=== PATIENT | male | born 1940 | race Caucasian/White ===

== ENCOUNTER 2016-04-20 09:31 | Observation (INO) ==
--- NOTE | 2016-04-20 09:45 | Emergency Department Note ---
Disposition Clinical Impression: Chest pain Qualifiers: Chest pain type: unspecified Qualified Code(s): R07.9 - Chest pain, unspecified Disposition: Admitted As Inpatient Time of Disposition: 17:17 Chest Pain HPI - General Chief Complaint: ED Chest Pain Stated Complaint: abnormal EKG Time Seen by Provider: 04/20/16 09:33 Source: patient Limitations: no limitations - History of Present Illness HPI Narrative: 75-year-old male presents to the ER from urgent care complaining several days of dyspnea and chest pressure. He states that yesterday he was seen by his PCP and was given a prescription for a blood pressure medication due to high blood pressure. He states that his blood pressures have been up to 180s. He states that at the urgent care they did an EKG which they stated was abnormal and that he needed to be seen in the emergency department. 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 He states that the chest pain is a diffuse pressure and does not radiate anywhere. He states that it is different than his pain he experienced with prior MIs. He states that the chest pain was associated with nausea today. He also states that he gets dizzy when his blood pressure is high. He denies pain, headache, dysuria, fevers, chills. Severity scale (1-10): 0 - Related Data Home Medications Medication Instructions Recorded Confirmed Clopidogrel [Plavix] 75 mg PO DAILY 04/20/16 04/20/16 FentaNYL PATCH [Duragesic] 25 mcg TD Q72H 04/20/16 04/20/16 Levothyroxine [Synthroid] 112 mcg PO DAILY 04/20/16 04/20/16 Lisinopril [Zestril] 5 mg PO DAILY 04/20/16 04/20/16 Mv-Mn/FA/Vit K/Lycop/Lut/Coq10 1 each PO DAILY 04/20/16 04/20/16 [Daily Multivitamin Capsule] Allergies Allergy/AdvReac Type Severity Reaction Status Date / Time gabapentin [From Neurontin] AdvReac Vomiting Verified 04/20/16 14:43 All systems ED: reviewed and negative except as stated. Chest Pain PMH - Past Medical History Medical history: Reports: cancer, hypertension, myocardial infarction Psychiatric history: Reports: no psych history - Social History Smoking Status: Never smoker Alcohol use: Reports: none Drug use: Reports: none Physical Exam - General Limitations: no limitations General appearance: alert, in no apparent distress - Head Head exam: atraumatic, normocephalic - Eye Eye exam: Present: PERRL, EOMI - ENT ENT exam: normal oropharynx, mucous membranes moist, other (post surgical changes to the left jaw) - Neck Neck exam: Present: trachea midline, other (scarring the the left neck and jaw.) . Absent: lymphadenopathy - Chest Chest inspection: Present: other (multiple surgical scars on the left anterior chest) - Respiratory Respiratory exam: Present: normal lung sounds bilaterally. Absent: respiratory distress, wheezes, stridor, accessory muscle use - Cardiovascular Cardiovascular exam: Present: regular rate, normal rhythm, +S1, +S2 - Abdominal Exam Abdominal exam: Present: soft, normal bowel sounds. Absent: tenderness, distention, guarding, rebound, rigidity Abdominal tenderness: Present: suprapubic - Extremities Exam Extremities exam: Present: normal inspection, full ROM, normal capillary refill. Absent: tenderness, pedal edema, calf tenderness - Back Exam Back exam: Present: normal inspection - Neurological Exam Neurological exam: Present: alert, oriented X3 - Psychiatric Psychiatric exam: Present: normal affect, normal mood Course Course Narrative: 75-year-old male presents with dyspnea and chest pressure for a few days. Was seen in urgent care and was sent here for further evaluation due to abnormal EKG. EKG shows sinus rhythm with heart rate of 63, FL interval 165, QT of 402. No significant changes when compared to prior. Patient does have history of prior [place] in neck cancer. Will do cardiac workup. Patient states that he is currently not in any pain. His blood pressure upon arrival to the room is 192/ 101. Patient's exam is unremarkable except for mild suprapubic tenderness. CXR shows no acute process, trop negative. CBC, CMP WNL. D-Dimer 2022, will obtain CTA with patient symptom of dyspnea and history of 2 different cancers. CTA negative for PE Upon review of records, patient had 2 stents in 2011 with his last stress test at that time. Patient had ECHO in 2012. Denies recent cardiac workup. Blood pressure has improved since arrival, is in the 140's. Discussed admission with Dr. Ellsworth who has accepted the patient. Discussed admission with patient and his . - Consultations Consultation #1: Discussed case with Dr. Ducu with the Hospitalist service, who has accepted the patient for admission. Time: 13:31 Vital Signs Temperature 97.6 F 04/20/16 09:34 Pulse Rate 63 04/20/16 09:34 Respiratory Rate 16 04/20/16 09:34 Blood Pressure 192/101 04/20/16 09:34 O2 Sat by Pulse Oximetry 98 04/20/16 09:34 Temperature 97.6 F 04/20/16 14:15 Pulse Rate 58 04/20/16 14:15 Respiratory Rate 15 04/20/16 14:15 Blood Pressure 163/84 04/20/16 14:15 O2 Sat by Pulse Oximetry 95 04/20/16 14:15 Oxygen Delivery Oxygen Delivery Room Air Chest Pain - Medical Records Medical records reviewed: Yes I reviewed the patient's medical records. - Lab Data Lab results reviewed: Yes I reviewed the patient's lab results. Result diagrams: 04/20/16 09:51 04/20/16 09:51 Lab Results 04/20/16 04/20/16 04/20/16 Range/Units 09:51 09:51 09:51 WBC 4.4 (4.3-11.1) K/mcL RBC 4.32 (4.19-5.50) M/mcL Hgb 14.2 (12.9-16.9) g/dL Hct 40.8 (37.5-50.1) % MCV 94.4 (83.0-100.0) fL MCH 32.9 (28.0-33.3) pg MCHC 34.8 (31.6-35.5) g/dL RDW 12.3 (11.5-14.5) % Plt Count 130 L (140-400) K/mcL MPV 9.9 (9.4-12.4) fL Immature Gran % 0.2 (0-4) % Seg Neutrophils % 62.0 % Lymphocytes % 26.7 % Monocytes % 7.9 % Eosinophils % 2.5 % Basophils % 0.7 % Neutrophils # 2.7 (1.6-8.9) K/mcL Lymphocytes # 1.2 (0.6-4.6) K/mcL Monocytes # 0.4 (0.0-1.3) K/mcL Eosinophils # 0.1 (0.0-0.6) K/mcL Basophils # 0.0 (0.0-0.2) K/mcL Immature Plt Fraction 2.7 (1.1-6.1) % PT 11.7 (9.4-12.1) Seconds INR 1.1 APTT 29.7 (26.0-36.0) Seconds D-Dimer 2023 H (0-500) ng/mLFEU Sodium 141 (136-145) mEq/L Potassium 4.1 (3.5-4.5) mEq/L Chloride 106 (98-109) mEq/L Carbon Dioxide 25 (19-29) mEq/L BUN 17 (8-26) mg/dL Creatinine 1.02 (0.72-1.25) mg/dL Est GFR ( Amer) > 60 (> 60) Est GFR (Non-Af Amer) > 60 (> 60) BUN/Creatinine Ratio 17 (6-26) Glucose 107 H (70-99) mg/dL Calculated Osmolality 294 (280-300) Calcium 9.4 (8.6-10.8) mg/dL Total Bilirubin 1.0 (0.2-1.2) mg/dL Direct Bilirubin 0.4 (0.0-0.5) mg/dL Indirect Bilirubin 0.6 (0.0-1.2) mg/dL AST 20 (5-34) Units/L ALT 11 (0-55) Units/L Alkaline Phosphatase 43 (38-126) Units/L Troponin I (0-0.03) ng/mL Serum Total Protein 6.4 (6.0-8.3) g/dL Albumin 3.7 (3.5-5.0) g/dL Globulin 2.7 (2.4-3.5) g/dL Albumin/Globulin Ratio 1.4 (1.1-2.2) Amylase 53 (25-125) Units/L Lipase 6 L (8-78) Units/L 04/20/16 04/20/16 Range/Units 09:51 16:37 WBC (4.3-11.1) K/mcL RBC (4.19-5.50) M/mcL Hgb (12.9-16.9) g/dL Hct (37.5-50.1) % MCV (83.0-100.0) fL MCH (28.0-33.3) pg MCHC (31.6-35.5) g/dL RDW (11.5-14.5) % Plt Count (140-400) K/mcL MPV (9.4-12.4) fL Immature Gran % (0-4) % Seg Neutrophils % % Lymphocytes % % Monocytes % % Eosinophils % % Basophils % % Neutrophils # (1.6-8.9) K/mcL Lymphocytes # (0.6-4.6) K/mcL Monocytes # (0.0-1.3) K/mcL Eosinophils # (0.0-0.6) K/mcL Basophils # (0.0-0.2) K/mcL Immature Plt Fraction (1.1-6.1) % PT (9.4-12.1) Seconds INR APTT (26.0-36.0) Seconds D-Dimer (0-500) ng/mLFEU Sodium (136-145) mEq/L Potassium (3.5-4.5) mEq/L Chloride (98-109) mEq/L Carbon Dioxide (19-29) mEq/L BUN (8-26) mg/dL Creatinine (0.72-1.25) mg/dL Est GFR ( Amer) (> 60) Est GFR (Non-Af Amer) (> 60) BUN/Creatinine Ratio (6-26) Glucose (70-99) mg/dL Calculated Osmolality (280-300) Calcium (8.6-10.8) mg/dL Total Bilirubin (0.2-1.2) mg/dL Direct Bilirubin (0.0-0.5) mg/dL Indirect Bilirubin (0.0-1.2) mg/dL AST (5-34) Units/L ALT (0-55) Units/L Alkaline Phosphatase (38-126) Units/L Troponin I 0.01 0.00 (0-0.03) ng/mL Serum Total Protein (6.0-8.3) g/dL Albumin (3.5-5.0) g/dL Globulin (2.4-3.5) g/dL Albumin/Globulin Ratio (1.1-2.2) Amylase (25-125) Units/L Lipase (8-78) Units/L - Radiology Data Radiology results reviewed: Yes I reviewed the patient's radiology results. Chest x-ray: No acute cardiopulmonary disease, ectasia of the ascending thoracic aorta CT/CT angio chest IMPRESSION: No evidence of pulmonary embolism or acute pulmonary abnormality. D/ / Matt Esparza MD / Matt Esparza MD Interpreting Provider: Matt Esparza MD - EKG Data EKG attestation: Yes I reviewed and interpreted this EKG. EKG shows normal: sinus rhythm Rate: normal Rhythm: NSR [place]/QRS: normal Voltage: c/w LVH When compared to previous EKG there are: no significant changes
[2016-04-20 10:03] LABS: Basophils % 0.7 %; Eosinophils # 0.1 K/mcL (0.0-0.6); Eosinophils % 2.5 %; Hematocrit 40.8 % (37.5-50.1); Hemoglobin 14.2 g/dL (12.9-16.9); Immature Granulocytes % 0.2 % (0-4); Immature Platelets 2.7 % (1.1-6.1); Lymphocytes # 1.2 K/mcL (0.6-4.6); Lymphocytes % 26.7 %; Mean Corpuscular HGB Conc 34.8 g/dL (31.6-35.5); Mean Corpuscular Hemoglobin 32.9 pg (28.0-33.3); Mean Corpuscular Volume 94.4 fL (83.0-100.0); Mean Platelet Volume 9.9 fL (9.4-12.4); Monocytes # 0.4 K/mcL (0.0-1.3); Monocytes % 7.9 %; Neutrophils # 2.7 K/mcL (1.6-8.9); Platelet Count 130 K/mcL (140-400); Red Blood Count 4.32 M/mcL (4.19-5.50); Red Cell Distribution Width 12.3 % (11.5-14.5)
[2016-04-20 10:12] LABS: INR 1.1; Prothrombin Time 11.7 Seconds (9.4-12.1)
[2016-04-20 10:15] LABS: Activated Partial Thrombo Time 29.7 Seconds (26.0-36.0)
[2016-04-20 10:17] LABS: Alanine Aminotransferase 11 Units/L (0-55); Albumin 3.7 g/dL (3.5-5.0); Albumin/Globulin Ratio 1.4 (1.1-2.2); Alkaline Phosphatase 43 Units/L (38-126); Amylase 53 Units/L (25-125); Aspartate Amino Transferase 20 Units/L (5-34); BUN/Creatinine Ratio 17 (6-26); Bilirubin,Direct 0.4 mg/dL (0.0-0.5); Bilirubin,Indirect 0.6 mg/dL (0.0-1.2); Blood Urea Nitrogen 17 mg/dL (8-26); Calcium 9.4 mg/dL (8.6-10.8); Carbon Dioxide 25 mEq/L (19-29); Chloride 106 mEq/L (98-109); Globulin 2.7 g/dL (2.4-3.5); Glucose 107 mg/dL (70-99); Lipase 6 Units/L (8-78); Osmolality,Calculated 294 (280-300); Potassium 4.1 mEq/L (3.5-4.5); Sodium 141 mEq/L (136-145); Total Protein 6.4 g/dL (6.0-8.3); eGFR For African Americans > 60 (> 60); eGFR For Non-African Americans > 60 (> 60)
[2016-04-20] MEDS ORDERED: *HR* HYDROcodone/Acet 5/325 mg TABLET PO PRN (15:10)
[2016-04-20] MEDS ORDERED: Acetaminophen 325 MG TABLET PO PRN (15:10)
[2016-04-20] MEDS ORDERED: Ondansetron 4 MG/2 ML VIAL IVP PRN (15:10)
[2016-04-20] MEDS ORDERED: Naloxone 0.4 MG/ML INJ IVP PRN (15:10)
[2016-04-20] MEDS ORDERED: MOM Conc 10 ML UD.LIQ PO PRN (15:10)
--- NOTE | 2016-04-20 15:29 | Internal Med History&Physical ---
<Federico Ellsworth - Last Filed: 04/20/16 18:34> Date of Encounter: 04/20/16 Internal Medicine - H&P: HPI History of present illness: Mr. Swift is a 75 year old male Internal Medicine - H&P: Meds Clopidogrel [Plavix] 75 mg PO DAILY 04/20/16 [History] FentaNYL PATCH [Duragesic] 25 mcg TD Q72H 04/20/16 [History] Levothyroxine [Synthroid] 112 mcg PO DAILY 04/20/16 [History] Lisinopril [Zestril] 5 mg PO DAILY 04/20/16 [History] Mv-Mn/FA/Vit K/Lycop/Lut/Coq10 [Daily Multivitamin Capsule] 1 each PO DAILY [History] Allergies gabapentin [From Neurontin] Adverse Reaction (Verified 04/20/16 14:43) Vomiting All Systems PM: A 10-system review of systems was performed and is negative for pertinent findings except as documented above in the HPI. - Constitutional Vitals: Temp Pulse Resp BP Pulse Ox 97.6 F 58 15 163/84 95 04/20/16 14:15 04/20/16 14:15 04/20/16 14:15 04/20/16 14:15 04/20/16 14:15 Internal Med - H&P Results - Labs CBC & Chem 7: 04/20/16 09:51 04/20/16 09:51 Labs: Cardiac Enzymes 04/20/16 Range/Units 16:37 Troponin I 0.00 (0-0.03) ng/mL - Attending Attestation I examined this patient and my medical decision-making was reviewed with the Advanced Practice Provider. I agree with the documented findings, disposition and treatment plan as described except to the extent set forth below. Patient reported precordial chest pain, advanced, now resolved, not associated with shortness of breath or diaphoresis. I reviewed his EKG shows normal sinus rhythm normal axis and intervals no ST or T-wave changes. On exam he is in no acute distress heart is bradycardic with premature contractions S1-S2, no murmurs Plan: Telemetry, trend troponin, echocardiogram and stress test in the morning. <Zuleyka Byrne - Last Filed: 04/20/16 18:53> Date of Encounter: 04/20/16 Time of Encounter: 14:45 Assessment and Plan (1) Chest pressure Current visit: Yes Status: Acute Pt has 1-2 month history of SOB and 2-3 week history of substernal chest pain without radiation, n/v, or diaphoresis. Pain does not get worse with deep inspiration or exertion. Pain lasts approx 5-10 min and happens multiple times each day. Describes as a pressure that seems to push up from his abdomen, sometimes it gets so bad that he can feel his heartbeat in his neck and upper chest. Pressure is not reproduceable. EKG NSR, initial troponins, CTA and chest xray all negative. Will continue to monitor. continuous telemetry Echo Stress test ASA 81mg po daily Metoprolol 12.5mg po bid Lipid panel TSH. Serial troponins (2) Shortness of breath Current visit: Yes Status: Acute Pt has 1-2 week history of SOB. Intermittent throughout the day, does not get worse with exertion, inspiration, or get better with rest. Pt relates new infrequent cough with small amount of white sputum. Pt has no history of lung disease and denies recent illness. CTA negative for PE. Same as above Continuous pulse ox Monitor labs Internal Medicine - H&P: HPI Chief complaint: SOB, Chest pressure Admitted From: Home Plans for Post Hospital Care: Home History of present illness: Mr. Swift is a 75 year old male with a 1-2 month history of SOB and sub-sternal chest pressure x 2-3 weeks. Pt states that the pressure happens multiple times throughout the day, and normally lasts 5-10 minutes. He also has intermittent sharp L chest pain lasting seconds. The SOB does not change with the pressure. Describes the pressure as "something pushing up" from his abdomen and sometimes it gets so bad that he can feel his heart beat in his upper chest and neck. Pt reports infrequent cough with clear sputum and denies fever or chills. Past Med Surg Social Fam HX - Past Medical History Medical history: cancer, hypertension, myocardial infarction Psychiatric history: no psych history - Social History Smoking Status: Never smoker Smokeless Tobacco Status: No Alcohol use: none Drug use: none - Family History Mother Living Status: Age at : 57 Cause of : liver ca Hx Family Cancer: Yes (liver) Hx Family Endocrine Disorder: Yes (diabetes) Father Living Status: Age at : 56 Cause of : brain tumor Hx Family Endocrine Disorder: Yes (diabetes) All Systems PM: A 10-system review of systems was performed and is negative for pertinent findings except as documented above in the HPI. - Constitutional Constitutional: no chills, no fever(s), no falls, no weakness - Cardiovascular Cardiovascular ROS IM: chest pain, dyspnea, no edema, no lightheadedness, no palpitations - Respiratory Respiratory: cough, no wheezing, no excessive phlegm production, no pain with cough - Gastrointestinal Gastrointestinal: diarrhea, nausea, vomiting - Endocrine Endocrine IM: no polydipsia, no polyphagia, no polyuria - Hematologic/Lymphatic Hematologic/Lymphatic: no lymphadenopathy - Constitutional Vitals: Temp Pulse Resp BP Pulse Ox 97.6 F 58 15 163/84 95 04/20/16 14:15 04/20/16 14:15 04/20/16 14:15 04/20/16 14:15 04/20/16 14:15 General appearance: Present: A&O X 3, pleasant, no acute distress - Head Additional comments: Previous surgery for esophogeal and neck cancer with removal of L mandible. - Neck Neck exam general surgery: Absent: lymphadenopathy, tenderness - Respiratory Respiratory exam: Present: CTAB. Absent: accessory muscle use, chest wall tenderness, decreased breath sounds, respiratory distress, rhonchi, wheezes - Cardiovascular Cardiovascular exam: Present: RRR, +S1, +S2. Absent: distant heart sounds, systolic murmur - GI/Abdominal GI/Abdominal exam: Present: hyperactive bowel sounds, soft, tenderness. Absent : pulsatile mass Additional comments: Pt reports RLQ tenderness with palpation. No rebound tenderness or guarding. - Extremities Exam Extremities exam: Present: warm, radial pulses palpable and symetrical. Absent : calf tenderness, pedal edema - Expanded Upper Extremities Exam Vascular exam: Present: normal capillary refill, pedal pulse right, pedal pulse left - Neurological Exam Neurological exam: Present: alert, oriented X3 Internal Med - H&P Results - Labs CBC & Chem 7: 04/20/16 09:51 04/20/16 09:51
[2016-04-20] MEDS ORDERED: *HR* FentaNYL PATCH 25 MCG PATCH TD SCH (15:30)
[2016-04-21 04:52] LABS: Basophils % 0.5 %; Eosinophils # 0.1 K/mcL (0.0-0.6); Eosinophils % 3.1 %; Hematocrit 36.7 % (37.5-50.1); Immature Granulocytes % 0.2 % (0-4); Immature Platelets 3.2 % (1.1-6.1); Lymphocytes # 0.9 K/mcL (0.6-4.6); Lymphocytes % 21.6 %; Mean Corpuscular HGB Conc 35.4 g/dL (31.6-35.5); Mean Corpuscular Hemoglobin 33.6 pg (28.0-33.3); Mean Corpuscular Volume 94.8 fL (83.0-100.0); Mean Platelet Volume 9.9 fL (9.4-12.4); Monocytes # 0.4 K/mcL (0.0-1.3); Monocytes % 8.7 %; Neutrophils # 2.8 K/mcL (1.6-8.9); Platelet Count 114 K/mcL (140-400); Red Blood Count 3.87 M/mcL (4.19-5.50); Red Cell Distribution Width 12.4 % (11.5-14.5); Segmented Neutrophils % 65.9 %
[2016-04-21 05:12] LABS: BUN/Creatinine Ratio 17 (6-26); Blood Urea Nitrogen 16 mg/dL (8-26); Calcium 8.8 mg/dL (8.6-10.8); Carbon Dioxide 23 mEq/L (19-29); Chloride 107 mEq/L (98-109); Chol/HDL Ratio 5.5 (0-4.9); Cholesterol 180 mg/dL (< 200); Glucose 91 mg/dL (70-99); HDL Cholesterol 33 mg/dL (40-59); LDL Cholesterol,Calculated 127 mg/dL (0-99); Osmolality,Calculated 289 (280-300); Potassium 3.7 mEq/L (3.5-4.5); Sodium 139 mEq/L (136-145); Triglycerides 99 mg/dL (< 150); eGFR For African Americans > 60 (> 60); eGFR For Non-African Americans > 60 (> 60)
[2016-04-21] MEDS ORDERED: Multivit/Ca/Min/Fe/FA 1 TAB TABLET PO SCH (09:00)
[2016-04-21] MEDS ORDERED: Aspirin 81 MG TAB.CHEW PO SCH (09:00)
--- NOTE | 2016-04-21 10:48 | Nuclear Medicine Stress Report ---
Exercise Nuclear Stress Name: MANDEEP LANDA Date of Study: 04/21/2016 Date: 1940 Ht: 67.0 in Medical Record#: [id number] Age: 75 Wt: 138.0 lb Gender: Male Order #: [id number] Location: [facility] IP Room: [facility] Supervising Provider: Chandan Gtz CNP Reading Physician: Gómez Ayala MD, [facility] Ordering Physician: Mariaelena Goodman CNP Primary Care Physician: Vesna Magallon CNP Stress Technologist: Luigi Branch, [employer] TECHNICIAN, [facility] Damper Fitter: Jim Telles Indications: Chest Pain Impression: The exercise capacity was average. Exercise ECG is borderline for ischemia in the inferior leads. Gated LVEF = 57%. Perfusion imaging was negative for ischemia or infarct. History: Hypertension Prior PCI Stress Test Summary: Stress Test Type: Treadmill Protocol: Héctor Baseline Information: Initial Heart Rate: 58 Blood Pressure: 142/82 Stress Information: Stress Time: 5 min 46 sec Test Terminated Due to (primary): Dyspnea Maximum Blood Pressure: 168/82 Maximum Heart Rate: 132 Percent Maximum Heart Rate Achieved: 91 Double Product: 30009 METS Reached: 7 Symptoms: Shortness of breath, Fatigue Nuclear Summary: SPECT myocardial perfusion imaging using Tc99m Sestamibi given intravenously was performed at rest and following cardiac stress testing. The resting images were obtained following initial dose of 11.0 mCi. Following stress an additional dose of 35.7 mCi was given at peak exercise or 30 seconds post regadenoson infusion. Findings: Stress Note * Resting ECG demonstrated sinus bradycardia. * No baseline arrhythmias were noted. * The exercise capacity was average. * Patient had no chest pain during stress. * No arrhythmias were noted during stress. * Exercise ECG is borderline for ischemia in the inferior leads. Hemodynamic responses * Normal hemodynamic responses to exercise. Study Quality * Study quality is average. Gated EF % * Gated LVEF = 57%. Left Ventricle * The left ventricle is not dilated. * Normal Segmental Perfusion in rest. * Normal segmental perfusion in stress. * Mild apical artifact is noted. TID * No evidence of transient ischemic dilatation. Updated by Gómez Ayala MD, [facility] on 04/21/2016 10:42:57 AM electronically signed on 04/21/2016 10:44:05 AM with status of Final
[2016-04-21 10:54] VITALS: BP 163/80
--- NOTE | 2016-04-21 13:53 | Discharge Summary ---
Date of Encounter: 04/21/16 Time of Encounter: 13:00 - Discharge Diagnosis (1) History of coronary artery disease Priority: Secondary Status: Acute (2) Chest pain Priority: Primary Status: Acute Qualifiers: Chest pain type: unspecified Qualified Code(s): R07.9 - Chest pain, unspecified (3) Shortness of breath Priority: Secondary Status: Acute - Discharge Medications Home Medications: Clopidogrel [Plavix] 75 mg PO DAILY 04/20/16 [History] FentaNYL PATCH [Duragesic] 25 mcg TD Q72H 04/20/16 [History] Levothyroxine [Synthroid] 112 mcg PO DAILY 04/20/16 [History] Lisinopril [Zestril] 5 mg PO DAILY 04/20/16 [History] Mv-Mn/FA/Vit K/Lycop/Lut/Coq10 [Daily Multivitamin Capsule] 1 each PO DAILY [History] Allergies/Adverse Reactions: Allergies gabapentin [From Neurontin] Adverse Reaction (Verified 04/20/16 14:43) Vomiting Procedures/tests Complete & Pending: Procedures Performed prior 72 hours Category Date Time Status NM sudeep perf SPECT multi [NM] Routine Exams 04/20/16 15:21 Taken EV carotid duplex imaging BI Routine Y 04/21/16 15:46 Completed EV echocardiogram Routine Y 04/21/16 15:19 Completed SP exercise nuclear stress Routine Y 04/21/16 07:00 Completed Date of admission: 04/20/16 13:53 Primary care physician: Vesna Magallon, Discharging clinician: Marlene Solis - Patient Status Disposition: Home, Self-Care Condition: Good Overall status at discharge: patient is back to baseline - Discharge Instructions Instructions: Chest Pain (DC) Follow Up With: Vesna Magallon, [employer]ORTER GRADER [Primary Care Provider] - - Diet and Activity Activity: resume usual activities as tolerated Diet: low salt diet Hospital course: Mr. Swift is a 75 year old male with past medical history of coronary artery disease is status post 2 stent on 2011, cardiac catheter done in 2013 with nonobstructive coronary artery disease based on patient report. Patient came to the hospital was complaining of left-sided chest pain associated with shortness of breath. Cardiac enzymes done which was negative. CTA chest no evidence of pulmonary embolism. stress test was done which show no evidence of schemia based on nuclear imaging, results discussed with cardiology team with borderline EKG part. Cardiology stated stress test is negative. Patient denies any chest pain or shortness of breath after stress test. Patient denies any nausea vomiting. Patient denies any abdominal pain. - Time Spent with Patient Total time spent providing and/or coordinating discharge services: Less than 30 minutes - Constitutional Vitals: Temp Pulse Resp BP Pulse Ox 97.4 F L 63 14 163/80 99 04/21/16 10:54 04/21/16 10:54 04/21/16 10:54 04/21/16 10:54 04/21/16 10:54 General appearance: Present: A&O X 3, pleasant, no acute distress
--- NOTE | 2016-04-21 14:33 | ECHO - Doppler Report ---
Echocardiogram Name: Kavin Swift Date of Study: 04/21/2016 Date: 1940 Ht: 67.0 in Medical Record#: [id number] Age: 75 Wt: 138.0 lb Gender: Male BSA: 1.73 Order #: [id number] Location: [facility] Room #: [id number] Reading Physician: Gómez Ayala MD, [facility] Environmental Programs Manager: Johanne Richardson RVT Ordering Physician: Zuleyka Byrne CNP Primary Physician: Vesna Magallon CNP Indications: Chest pain, SOB Impressions: Normal left ventricular size and systolic function, LVEF 55%. Normal right ventricular size and function. Mild-moderate aortic regurgitation. Mild mitral regurgitation. No evidence of pulmonary hypertension. Left Ventricular Wall Motion: Rest Echo Findings All wall segments showed normal motion. Findings: Study Quality * Suboptimal echo windows. ECG Findings * Sinus bradycardia. Left Ventricle * Normal left ventricular size and systolic function, LVEF 55%. * Normal LV wall thickness. * Indeterminate diastolic function. Right Ventricle * Normal right ventricular size and function. Left Atrium * Normal left atrial size. Right Atrium * Normal right atrial size. Aorta * Normally sized aortic root. Pericardium * There is no pericardial effusion present. IVC * The IVC was not visualized. Aortic Valve * Trileaflet aortic valve. * Mildly sclerotic aortic valve leaflets. * No aortic stenosis. * Mild-moderate aortic regurgitation. Mitral Valve * Mild mitral annular calcification * No mitral stenosis. * Mild mitral regurgitation. Tricuspid Valve * Normal tricuspid valve structure. * No tricuspid stenosis. * Trace tricuspid regurgitation. * No evidence of pulmonary hypertension. Pulmonic Valve * Pulmonic valve not well visualized. * No pulmonic stenosis. * No pulmonic regurgitation. History Family History of CAD History of CAD/PTCA Myocardial Infarction 11/11/2012 a Previous Echo was performed. Measurements: BP: 124/ 76 2D Normal Values RVIDd: 2.90 cm IVSd: 1.00 cm 0.6 - 1.0 cm LVIDd: 4.80 cm 3.7 - 5.6 cm LVPWd: .90 cm 0.6 - 1.1 cm LVIDs: 3.60 cm 1.5 - 3.6 cm AO: 3.70 cm < 4.0 cm LA volume: 50.2 Aortic Valve AI pressure Half-time: 797.00 msec Tricuspid Valve TV Regurg Peak Grad: 15.00mmHg TV Regurg Peak Saul: 1.93m/sec Updated by Gómez Ayala MD, [facility] on 04/21/2016 2:27:25 PM electronically signed on 04/21/2016 2:28:14 PM with status of Final Wall Motion Bravo: 1=Normal, 2=Hypokinesis, 3=Akinesis, 4=Dyskinesis, 5=Aneurysmal, 6=Hyperkinetic, X=Not Visualized (Blank)=Missing
--- NOTE | 2016-04-22 10:29 | Carotid Imaging Report ---
Carotid Duplex Patient Name:Kavin Swift Order Number:[id number] Procedure Date:04/21/2016 Date:1940ge:75 yrs Gender:Male Lt BP:124 / 76 mmHg Rt.BP:120 / 78 mmHgHeart Rate: Location:[facility] Room #: 3B32 Counter Help:Johanne Richardson RVT Referring MD:Zuleyka Byrne CNP deli cook:Vesna Magallon CNP Reading MD:Matt Frye MD , FACS Primary Indications:Chest pain, SOB Risk Factors Yes/No Hx of CAD/PTCA Yes Family History Yes Impressions: Findings: Right carotid system has nonstenotic plaque. Findings: Left proximal ICA has a severe, 60-79% stenosis. Recommendations: Risk Factor Modification, Follow up exam 6 months, and Suggest clinical correlation. Findings Carotid Duplex: Right: There is nonstenotic plaque in the right bifurcation. There is smooth, heterogeneous calcified plaque. There is nonstenotic plaque in the right proximal internal carotid artery. There is smooth homogeneous plaque. There is nonstenotic plaque in the right eca. There is smooth homogeneous plaque. Left: There is 60-79% stenosis in the left bifurcation. There is smooth, heterogeneous calcified plaque. There is 60-79% stenosis in the left proximal internal carotid artery. There is smooth heterogeneous plaque. There is nonstenotic plaque in the left eca. There is smooth homogeneous plaque. Carotid Results Right PSV EDV Assessment Proximal CCA 87 15 Normal Mid CCA 97 22 Normal Distal CCA 80 17 Normal Bifurcation 91 30 Non Stenotic Plaque Proximal ICA 85 23 Non Stenotic Plaque Mid ICA 101 30 Normal Distal ICA 94 21 Normal ECA 87 4 Non Stenotic Plaque Vertebral Artery 67 18 Antegrade Flow Left PSV EDV Assessment Proximal CCA 72 18 Normal Mid CCA 73 20 Normal Distal CCA 76 18 Normal Bifurcation 180 57 60-79% stenosis Proximal ICA 184 59 60-79% stenosis Mid ICA 103 36 Normal Distal ICA 107 32 Normal ECA 105 0 Non Stenotic Plaque Vertebral Artery 41 10 Antegrade Flow Ratio's Right ICA/CCA Ratio: 1.04 ICA/CCA Values: 101/97 Left ICA/CCA Ratio: 2.52 ICA/CCA Values: 184/73 Updated by Matt Frye MD, FACS on 04/22/2016 10:21:55 AM Matt Frye MD electronically signed on 04/22/2016 10:22:37 AM with status of Final
--- NOTE | 2016-04-22 21:45 | Electrocardiograph Report ---
[facility] Test Date: 2016-04-20 Pat Name: Kavin Swift Department: 105 Room: 3B32 Gender: M Offset Machine Operator: ANDREIA : 1940 Requested By: Ashlee Moseley Order Number: [id number] Reading MD: Gómez Ayala MD Measurements Intervals [place] Rate: 63 P: 41 RI: 165 QRS: 51 QRSD: 94 T: 47 QT: 402 QTc: 409 Interpretive Statements SINUS RHYTHM Electronically Signed On 04-22-16 21:44:13 EST by Gómez Ayala MD
--- NOTE | 2016-04-22 23:19 | Electrocardiograph Report ---
[facility] Test Date: 2016-04-20 Pat Name: MANDEEP LANDA Department: 113 Room: 3B32 Gender: M Application Developer: [email or web address] : 1940 Requested By: Mariaelena Goodman Order Number: [id number] Reading MD: Gómez Ayala MD Measurements Intervals [place] Rate: 83 P: DC: 0 QRS: 54 QRSD: 89 T: 41 QT: 376 QTc: 416 Interpretive Statements ATRIAL FIBRILLATION Electronically Signed On 04-22-16 23:18:23 EST by Gómez Ayala MD
== END 2016-04-21 14:25 | disposition home or self-care (01) ==
LOC: 3BNU 09:31 → EMEROO 09:31 → 3BNU 14:03
PROVIDERS: ADMIT Internal Medicine; ATTEND Nurse Practitioner Family